=== PATIENT | female | born 1985 | race Caucasian/White ===

== ENCOUNTER → 2019-06-01 16:56 | Outpatient (CLI) | payer OTHER, SELFPAY | PROVIDERS: Family Provider Family Medicine; Visit Provider Nurse Practitioner | DX: J02.8 Acute pharyngitis due to other specified organisms (principal) | CPT/HCPCS: 87070; 87077; 87147; 87185 ==

== ENCOUNTER → 2020-08-15 13:39 | Outpatient (CLI) | payer OTHER, MEDICAID, SELFPAY ==
[2020-08-15 14:24] LABS: Add Manual Diff / Slide Review NO; Basophils Absolute Auto 0 /uL (0-100); Basophils Percent Auto 0.5 % (0-2); Eosinophils Absolute Auto 100 /uL (0-450); Eosinophils Percent Auto 1.6 % (2-4); Hemoglobin 12.9 g/dL (12.0-16.0); Lymphocytes Absolute Auto 3000 /uL (1100-4500); Lymphocytes Percent Auto 39.3 % (25-40); Mean Corpuscular Hemoglobin 32.3 PG (26-34); Monocytes Absolute Auto 600 /uL (0-900); Monocytes Percent Auto 8.3 % (3-14); Neutrophils Absolute Auto 3900 /uL (1500-7000); Neutrophils Percent Auto 50.3 % (50-75); Platelet Count 267 X10^3/uL (150-400); White Blood Cell Count 7.7 X10^3/uL (4.5-11.0)
[2020-08-15 14:40] LABS: Alanine Aminotransferase 28 IU/L (<35); Albumin 5.2 g/dL (3.5-5.0); Albumin Globulin Ratio 1.9 (1.0-2.8); Alkaline Phosphatase 37 U/L (38-126); Aspartate Aminotransferase 30 IU/L (14-36); Bilirubin Total 0.3 mg/dL (0.2-1.3); Blood Urea Nitrogen 12 mg/dL (7-17); Calcium 10.1 mg/dL (8.4-10.2); Carbon Dioxide 28 mmol/L (22-32); Chloride 100 mmol/L (98-107); Estimated Glomerular Filt Rate > 60.0 mL/min (>60); Globulin 2.8 g/dL (1.7-4.1); Glucose 81 mg/dL (70-100); HEMOLYSIS < 15 (0-50); Potassium 3.9 mmol/L (3.4-5.1); Sodium 137 mmol/L (137-145)
[2020-08-15 14:59] LABS: Free T4, Direct Thyroxine 1.03 ng/dL (0.78-2.19)
[2020-08-15 15:13] LABS: Thyroid Stimulating Hormone 0.873 uIU/mL (0.47-4.68)
== END ==
PROVIDERS: Family Provider Family Medicine; PCP Registered Nurse; Referring Provider Registered Nurse; Visit Provider Registered Nurse
DX: R53.83 Other fatigue (principal)
CPT/HCPCS: 36415; 80053; 84439; 84443; 85025

== ENCOUNTER → 2020-12-28 10:24 | Outpatient (CLI) | payer OTHER, MEDICAID, SELFPAY ==
--- NOTE | 2020-12-28 10:26 | DI.US.S_ITS ---
PROCEDURE: US PELVIC COMPLETE INDICATIONS: ABNORMAL VAGINAL BLEEDING TECHNIQUE: Real-time scanning was performed of the pelvic organs, with image documentation. Additional endovaginal scanning was necessary due to incomplete visualization of the adnexal and endometrial structures by transabdominal scanning. COMPARISON: None. FINDINGS: Uterus: Uterus is anteverted and anteflexed and normal in size at 7.3 x 3.4 x 5.4 cm. No myometrial masses. The endometrium measures three mm in combined thickness. The IUD is in satisfactory position at the fundal endometrium. There is no endometrial fluid collection. Ovaries: The right ovary measures 2.6 x 1.2 x 1.4 cm for a volume of 2.3 cc. The left ovary measures 3.4 x 3.0 x 2.6 for a volume of 13.8 cc. The left ovary contains a dominant follicle measuring 1.9 x 2.3 x 1.5 cm containing low level internal echoes and peripheral hypervascularity. The right ovary demonstrates a normal follicular echotexture. There is normal vascular flow in each ovary. Other: There is a small amount of diffuse mildly complex pelvic fluid. IMPRESSION: 1. IUD in satisfactory position in the uterus. 2. 2.3 cm hemorrhagic appearing left ovarian corpus luteum. 3. Mildly complex fluid in the pelvis suggests recent rupture of left ovarian corpus luteum. Dictated by: Mara Hidalgo M.D. on 12/28/2020 at 12:37 Approved by: Mara Hidalgo M.D. on 12/28/2020 at 12:42
== END ==
PROVIDERS: Family Provider Family Medicine; PCP Registered Nurse; Referring Provider Registered Nurse; Visit Provider Registered Nurse
DX: N93.9 Abnormal uterine and vaginal bleeding, unspecified (principal); N83.12 Corpus luteum cyst of left ovary; N64.4 Mastodynia; Z80.3 Family history of malignant neoplasm of breast; Z97.5 Presence of (intrauterine) contraceptive device
CPT/HCPCS: 76830; 76856

== ENCOUNTER → 2021-01-18 08:51 | Outpatient (CLI) | payer OTHER, MEDICAID, SELFPAY ==
--- NOTE | 2021-01-18 08:52 | DI.MG.S_ITS ---
BILATERAL DIGITAL DIAGNOSTIC MAMMOGRAM 3D/2D: 01/18/2021 CLINICAL: Baseline exam. Breast pain. No prior exams were available for comparison. The tissue of both breasts is extremely dense, which lowers the sensitivity of mammography. There is a 7 mm oval equal density lymph node in the left axillary tail. This correlates as palpated. No other significant masses, calcifications, or other findings are seen in either breast. IMPRESSION: INCOMPLETE: NEEDS ADDITIONAL IMAGING EVALUATION The 7 mm oval equal density lymph node corresponds to the palpable abnormality, but remains indeterminate. An ultrasound is recommended. This was performed immediately following this exam. This exam was interpreted at Station ID: [id number]. NOTE: For mammograms, a report in lay terms will be sent to the patient. Approximately 15% of breast malignancies will not be visualized mammographically. In the management of a palpable breast mass, a negative mammogram must not discourage biopsy of a clinically suspicious lesion. Electronically Signed By: Mara montano/:01/18/2021 09:50:22 ACR BI-RADS Category 0: Incomplete 3340F
--- NOTE | 2021-01-18 08:52 | DI.US.S_ITS ---
LIMITED ULTRASOUND OF LEFT BREAST: 01/18/2021 CLINICAL: Palpable left breast lump. Comparison is made to exam dated: 01/18/2021 [facility]. Color flow and real-time ultrasound of the left breast 1 o'clock region were performed. Delong scale images of the real-time examination were reviewed. No sonographic finding to correspond to the patient's palpable abnormality. Incidental finding of a 1.2 cm x 1.3 cm x 0.6 cm oval fibroadenoma with a circumscribed margin in the left breast at 1 o'clock middle depth 5 cm from the nipple. This fibroadenoma displays internal echoes and posterior acoustic enhancement. . Color flow imaging demonstrates that there is vascularity present and adjacent vascularity. IMPRESSION: PROBABLY BENIGN There is no abnormality seen in the left breast to correspond with the palpable abnormality and pain at 1 o'clock which is consistent with normal fibroglandular tissue. The 1.2 cm x 1.3 cm x 0.6 cm oval fibroadenoma in the left breast is probably benign. A follow-up left ultrasound in 6 months is recommended to demonstrate stability. Findings and recommendations were conveyed to the patient at time of exam. This exam was interpreted at Station ID: [id number]. Electronically Signed By: Mara montano/:01/18/2021 10:55:36 letter sent: Followup Recommended Ultrasound BI-RADS: 3 Probably benign
== END ==
PROVIDERS: Family Provider Family Medicine; PCP Registered Nurse; Referring Provider Registered Nurse; Visit Provider Registered Nurse
DX: N64.4 Mastodynia (principal); R92.8 Other abnormal and inconclusive findings on diagnostic imaging of breast; D24.2 Benign neoplasm of left breast
CPT/HCPCS: 76642; 77066; G0279

== ENCOUNTER → 2021-03-27 13:19 | Outpatient (CLI) | payer OTHER, MEDICAID, SELFPAY ==
[2021-03-29 09:42] LABS: Hepatitis Be Antibody Negative (Negative)
== END ==
PROVIDERS: Family Provider Family Medicine; PCP Registered Nurse; Referring Provider Registered Nurse; Visit Provider Registered Nurse
DX: R76.8 Other specified abnormal immunological findings in serum (principal)
CPT/HCPCS: 36415; 86707

== ENCOUNTER → 2021-05-15 13:21 | Outpatient (CLI) | payer OTHER, MEDICAID, SELFPAY ==
[2021-05-18 16:25] LABS: Hepatitis B Surface Antigen NEGATIVE s/c (NEGATIVE)
[2021-05-20 06:23] LABS: Hepatitis B Surf Ab Qualitativ Non Reactive (.)
== END ==
PROVIDERS: Student in an Organized Health Care Education/Training Program; Family Provider Family Medicine; PCP Registered Nurse; Referring Provider Registered Nurse; Visit Provider Registered Nurse
DX: R76.8 Other specified abnormal immunological findings in serum (principal)
CPT/HCPCS: 36415; 86706; 87340

== ENCOUNTER 2022-02-21 13:30 | Emergency (ER) | payer OTHER, SELFPAY ==
[2022-02-21 13:33] VITALS: BP 113/56; PULSE 74; RESP 14; TEMP 36; O2SAT 98; BMI 24.0
[2022-02-21] MEDS: TET,DIPH,PERTUSS(ACELL),VAC/PF 0.5 ML SYRINGE IM (14:30)
[2022-02-21] MEDS: HEPATITIS B VIRUS VACCINE 20 MCG/ML IM (14:31)
[2022-02-21 15:13] LABS: Alanine Aminotransferase 21 IU/L (<35)
[2022-02-21 15:38] VITALS: BP 109/59; PULSE 70; O2SAT 100
--- NOTE | 2022-02-21 20:07 | ED.GENADULT ---
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 She does not know about the source, she wishes to have a hepatitis-B vaccine. She denies history of hepatitis or other blood borne disease. Related Data Home Medications Medication Instructions Recorded Confirmed copper 380 square mm intrauterine intrauterine 10/22/18 03/06/21 device (ParaGard T 380A) Previous Rx's Medication Instructions Recorded clotrimazole 1 % topical cream 1 applic topical BID pityriasis 08/15/20 versicolor 2 weeks #30 grams escitalopram oxalate 10 mg tablet 10 mg PO DAILY anxiety with 02/20/21 (Lexapro) depression #30 tabs mupirocin 2 % topical ointment 1 applic topical DAILY #15 grams 02/21/22 Allergies Allergy/AdvReac Type Severity Reaction Status Date / Time No Known Drug Allergies Allergy Verified 02/21/22 13:32 Review of Systems Review of Systems Narrative: Review of systems is negative for acute abnormalities unless otherwise noted in HPI Patient History Medical History Abnormal vaginal bleeding Breast pain, left Cervical cancer screening Fatigue Surgical History Anesthesia History of tonsillectomy and adenoidectomy (~1992) Family History Grandfather Cancer Diabetes mellitus Hypertension Hyperlipidemia Stroke Social History Smoking Status: Former smoker Tobacco: How many years used: 10 alcohol intake: current (2 drinks per week ) substance use type: does not use Smoking Status: Former smoker alcohol intake frequency: a few times a week Substance Use Type: does not use Exam Narrative Exam Narrative: Independently reviewed vitals signs and nursing notes. General: Alert and oriented x3, no apparent distress. HEENT: EOMI. Oral mucosa is moist. Neck is supple, symmetrical face expressions Skin:, small puncture wound to left index finger, covered with Band-Aid Neurologic: Grossly intact, no new weakness or dizziness Initial Vital Signs Initial Vital Signs: Vital Signs Temperature 96.8 F L 02/21/22 13:33 Pulse Rate 74 02/21/22 13:33 Respiratory Rate 14 02/21/22 13:33 Blood Pressure 113/56 L 02/21/22 13:33 Pulse Oximetry 98 02/21/22 13:33 Oxygen Delivery Method 02/21/22 13:33 Course Orders Ordered: Discontinued Medications Diphtheria/Tetanus/Acell Pertussis (Tet,Diph,Pertuss(Acell),Vac/Pf 0.5 Ml Syringe) 0.5 ml IM .ONCE ONE Stop: 02/21/22 13:56 Last Admin: 02/21/22 14:30 Dose: 0.5 ml Documented By: ARTEMIO Hepatitis B Vaccine (Hepatitis B Virus Vaccine/Pf 20 Mcg/Ml Syringe (Adult)) 20 mcg IM NOW ONE Stop: 02/21/22 14:17 Last Admin: 02/21/22 14:31 Dose: 20 mcg Documented By: ARTEMIO Vital Signs Vital signs: Vital Signs - 8 hr 02/21/22 13:33 02/21/22 15:38 Temperature 96.8 F L Pulse Rate 74 70 Respiratory Rate 14 Blood Pressure 113/56 L 109/59 L Pulse Oximetry 98 100 Oxygen Delivery Method Room Air Room Air Medical Decision Making Lab Data Labs: Lab Results 02/21/22 02/21/22 Range/Units 14:37 14:37 ALT 21 (<35) IU/L Hepatitis C Antibody Negative (NEGATIVE) s/c HIV 1&2 Ab/P24 Ag 4thGn Negative (NEGATIVE) MDM Narrative Medical decision making narrative: This is a 36-year-old female who 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 Post exposure packet was completed, patient received tetanus vaccination, and a hepatitis vaccine. She declined wanting antivirals for prophylaxis. Patient is appropriate and amenable to discharge home. Vital signs are stable on repeat examination is unremarkable. Patient has been informed of results. Patient has been given strict return to ER precautions for any new or worsening symptoms. Patient understands to follow up closely with outpatient providers as instructed. Patient understands plan and agrees to discharge home. All questions and concerns answered at this time. Discharge Plan Departure Patient Disposition: Home Clinical Impression: Accidental needlestick injury with exposure to body fluid Instructions: DI for Accidental Exposure to Body Fluids Activity Restrictions/Additional Instructions: Juli, I am sorry for this injury that happened today, please use topical antibiotic ointment to help prevent any infection of this, this is a very low contamination area, chances of you can try acting a blood borne illness are very very low. We will call you if anything is positive on your lab work those obtained today thank you for your patients on the time to wait, I hope that you have a good rest of your week. I sent topical antibiotic ointment to [facility] which will cover you for MRSA and multiple oral pathogens. Prescriptions: New mupirocin 2 % ointment 1 applic topical DAILY Qty: 15 0RF No Action ParaGard T 380A 380 square mm intrauterine device Intrauterine clotrimazole 1 % cream 1 applic topical BID 14 Days Qty: 30 1RF escitalopram oxalate [Lexapro] 10 mg tablet 10 mg PO DAILY Qty: 30 3RF Referrals: Kimberley Rangel ARNP [Primary Care Provider] - Visit Report Forms: Patient Portal/API
[2022-02-22 16:44] LABS: HIV 1 & 2 Ab/Ag 4th Gen Combo NEGATIVE (NEGATIVE); Hep C Virus Ab w/Reflex Quant NEGATIVE s/c (NEGATIVE)
== END 2022-02-21 15:39 | disposition home or self-care (01) ==
PROVIDERS: Emergency Provider Nurse Practitioner Critical Care Medicine; Family Provider Family Medicine; PCP Registered Nurse
DX: Z20.9 Contact with and (suspected) exposure to unspecified communicable disease (principal); Z23 Encounter for immunization; W46.1XXA Contact with contaminated hypodermic needle, initial encounter; Y99.0 Civilian activity done for income or pay
CPT/HCPCS: 36415; 84460; 86803; 87389; 90471; 99282; 99283; 90715

== ENCOUNTER → 2023-03-08 10:13 | Outpatient (CLI) | payer OTHER, MEDICAID, SELFPAY ==
--- NOTE | 2023-03-08 10:14 | DI.MG.S_ITS ---
BILATERAL DIGITAL DIAGNOSTIC MAMMOGRAM 3D/2D: 03/08/2023 CLINICAL: Late Short term follow up of the left breast, due for bilateral imaging. Comparison is made to exams dated: 01/18/2021 mammogram and 01/18/2021 ultrasound - [facility]. Both breasts are extremely dense, which lowers the sensitivity of mammography (category d />75% glandular tissue). There is a mass in the left breast at 1 o'clock middle depth. Finding is seen only on tomography. This is more prominent and correlates with ultrasound findings. No other significant masses, calcifications, or other findings are seen in either breast. IMPRESSION: INCOMPLETE: NEEDS ADDITIONAL IMAGING EVALUATION The mass in the left breast is indeterminate. A targeted ultrasound is recommended and will immediately follow. Based on the Tyrer Cuzick model (a risk assessment model) the patient's lifetime risk is 10.5% and her 10 year risk is 0.9%. According to the ACR, ACS, and NCCN guidelines, an annual breast MRI exam along with mammogram is recommended if the patient's lifetime risk is 20% or greater. This exam was interpreted at Station ID: [id number]. NOTE: For mammograms, a report in lay terms will be sent to the patient. Approximately 15% of breast malignancies will not be visualized mammographically. In the management of a palpable breast mass, a negative mammogram must not discourage biopsy of a clinically suspicious lesion. Electronically Signed By: Clifford Peoples M.D. slc/:03/08/2023 11:40:38 ACR BI-RADS Category 0: Incomplete 3340F
--- NOTE | 2023-03-08 10:14 | DI.US.S_ITS ---
LIMITED ULTRASOUND OF LEFT BREAST AND AXILLA: 03/08/2023 CLINICAL: Late Short term follow up of the left breast. Comparison is made to exams dated: 03/08/2023 mammogram, 01/18/2021 ultrasound, and 01/18/2021 mammogram - [facility]. Color flow and real-time ultrasound of the left breast axilla were performed. Delong scale images of the real-time examination were reviewed. There is a 1.9 cm x 1.8 cm x 1 cm oval mass with a circumscribed margin in the left breast at 1 o'clock middle depth 5 cm from the nipple. This oval mass displays a well-defined boundary. This abnormality is increased in size and correlates as palpated. Color flow imaging demonstrates that there is no vascularity present. No significant abnormalities were seen sonographically in the left axilla. IMPRESSION: SUSPICIOUS OF MALIGNANCY The 1.9 cm x 1.8 cm x 1 cm oval mass in the left breast resembles a fibroadenoma and is at a low suspicion for malignancy. An ultrasound guided biopsy is recommended. No enlarged left axillary lymph nodes. Exam findings were discussed with the patient. This exam was interpreted at Station ID: [id number]. Electronically Signed By: Clifford Peoples M.D. slc/:03/08/2023 11:43:57 letter sent: Biopsy Required Ultrasound BI-RADS: 4a Low suspicion for malignancy
== END ==
PROVIDERS: Family Provider Family Medicine; PCP Family Medicine; Referring Provider Family Medicine; Visit Provider Family Medicine
DX: D24.2 Benign neoplasm of left breast (principal); N64.4 Mastodynia; N63.20 Unspecified lump in the left breast, unspecified quadrant
CPT/HCPCS: 76642; 77066; G0279

== ENCOUNTER → 2023-06-07 12:40 | Outpatient (CLI) | payer OTHER, MEDICAID, SELFPAY ==
--- NOTE | 2023-06-07 | PATH_ITS ---
[facility] Accession Number: [id number] No. of containers..01 Tissue . 01 Material submitted: . breast - LEFT BREAST MASS 1:00 5CMFN . 01 Clinical history: . LEFT BREAST MASS 1:00 5CMFN . 01 Diagnosis: A. Left Breast, Mass at 1 o'clock, 5 cm from Nipple, Biopsy: Fragments of fibroadenoma with usual ductal hyperplasia and columnar cell change/columnar cell hyperplasia. 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 Negative for atypia, carcinoma in situ, and malignancy. . COMMENT: Clinical and radiographic correlation is necessary. MRV 06/11/2023 1311 Local . 01 Electronically signed: . Reyna Rouse MD, Pathologist NPI- [id number] . 01 Gross description: . The specimen is received in formalin and labeled with the patient's name, , and US bx breast, and consists of multiple josé soft tissue fragments aggregating to 1.6 x 1.5 x 0.2 cm. Filtered, inked orange, and submitted entirely in cassette A1. . The specimen was removed on 06/07/2023 at 1342, time in formalin not provided, cold ischemic time cannot be calculated, total fixation time is approximately 49 hours. ([id number]) /FRR 06/08/2023 1613 Local . 01 Microscopic: . A panel of immunostains is performed on block A1 in order to evaluate the areas of intraductal hyperplasia for neoplasia, with appropriately staining external controls. The areas of interest demonstrate the following immunoprofile, in support of no evidence of neoplasia: . CK5/6: Not contributory due to technical artifacts. ER: Mosaic pattern. . Deeper H/E levels are also examined. . * This test was developed and its performance characteristics determined by [facility]. It has not been cleared or approved by the U.S. Food and Drug Administration. The FDA has determined that such clearance or approval is not necessary. This test is used for clinical purposes. It should not be regarded as investigational or for research. . 01 Pathologist provided ICD-10: D24.2 . 01 CPT . 189895, A73409, F44554 Performed at: 01 [facility] [address] [place] [address], [place], [place] [id number] MD Joseph Logan MD Phone: [phone]
--- NOTE | 2023-06-07 12:42 | DI.US.S_ITS ---
ULTRASOUND GUIDED BIOPSY LEFT BREAST WITH MARKING DEVICE INSERTED AND POST MAMMOGRAPHIC IMAGIN06/07/2023 CLINICAL: Left breast mass. PATIENT CONSENT: Risks (minor bleeding, infection, vasovagal reaction and repeat procedure), benefits and alternatives were explained to the patient and written informed consent was obtained. Correlation is made to exams dated: 03/08/2023 ultrasound, 03/08/2023 mammogram, 01/18/2021 ultrasound, and 01/18/2021 mammogram - . An ultrasound guided biopsy using real-time ultrasound was performed for the oval mass located in the left breast at 1 o'clock middle depth 5 cm from the nipple. This was described on the previous mammography and ultrasound reports. The skin was prepped in the usual manner. Local anesthetic was administered to the access site. A skin ros was made in the breast. The abnormality was approached from the lateral aspect. A 14 gauge biopsy needle was placed adjacent to the abnormality under ultrasound guidance. Once the needle was documented to be in the correct location, five specimens were obtained using BARD Elevation biopsy device. A Vision clip was inserted into the biopsy cavity. A sterile dressing was applied to the access site. Post procedure mammographic imaging demonstrates the location device at the targeted area. The specimens were sent to the laboratory for pathological analysis. IMPRESSION: ULTRASOUND GUIDED BIOPSY BENIGN Ultrasound guided biopsy of the mass in the left breast at 1 o'clock middle depth 5 cm from the nipple was successful. Pathology indicates benign usual ductal hyperplasia (DHU), fibroadenoma (FA), pseudoangiomatous stromal hyperplasia (PSH), and columnar cell change. Pathology results are concordant with imaging findings. Screening mammography beginning at age 40 is recommended. Results and recommendations will be communicated to the ordering provider's office. This exam was interpreted at Station ID: [id number]. Emmett pany,krg/:06/12/2023 14:15:32
--- NOTE | 2023-06-07 12:42 | DI.MG.S_ITS ---
UNILATERAL LEFT DIGITAL DIAGNOSTIC MAMMOGRAM 3D/2D - LEFT BREAST POST-NEEDLE BIOPSY: 06/07/2023 CLINICAL: Post left breast ultrasound biopsy, clip placment imaging. Comparison is made to exams dated: 03/08/2023 mammogram and 01/18/2021 mammogram - [facility]. The left breast is extremely dense, which lowers the sensitivity of mammography (category d />75% glandular tissue). There is a marker clip in the appropriate position in the left breast at 1 o'clock middle depth 5 cm from the nipple. This marker clip placement is at the biopsy site. This correlates with ultrasound findings and the biopsy. IMPRESSION: POST PROCEDURE MAMMOGRAM FOR MARKER PLACEMENT There was a successful marker clip placement in the left breast middle depth. Based on the Tyrer Cuzick model (a risk assessment model) the patient's lifetime risk is 10.5% and her 10 year risk is 0.9%. According to the ACR, ACS, and NCCN guidelines, an annual breast MRI exam along with mammogram is recommended if the patient's lifetime risk is 20% or greater. This exam was interpreted at Station ID: [id number]. NOTE: For mammograms, a report in lay terms will be sent to the patient. Approximately 15% of breast malignancies will not be visualized mammographically. In the management of a palpable breast mass, a negative mammogram must not discourage biopsy of a clinically suspicious lesion. Electronically Signed By: Emmett Jackson M.D. aty/:06/07/2023 16:52:51 ACR BI-RADS Category Post-procedure mammogram for marker placement
== END ==
LOC: US 12:40
PROVIDERS: Family Provider Family Medicine; PCP Family Medicine; Referring Provider Family Medicine; Visit Provider Family Medicine
DX: N64.4 Mastodynia (principal); N62 Hypertrophy of breast; D24.2 Benign neoplasm of left breast; R92.8 Other abnormal and inconclusive findings on diagnostic imaging of breast
CPT/HCPCS: 19083; 77065

== ENCOUNTER → 2023-07-03 12:45 | Outpatient (CLI) | payer OTHER, MEDICAID, SELFPAY ==
[2023-07-03 14:22] LABS: Add Manual Diff / Slide Review NO; Basophils Absolute Auto 0 /uL (0-100); Basophils Percent Auto 0.4 % (0-2); Eosinophils Absolute Auto 100 /uL (0-450); Eosinophils Percent Auto 1.5 % (2-4); Hematocrit 39.1 % (36-46); Hemoglobin 13.8 g/dL (12.0-16.0); Lymphocytes Absolute Auto 2500 /uL (1100-4500); Lymphocytes Percent Auto 36.9 % (25-40); Mean Corpuscular HGB Conc 35.2 % (30-36); Mean Corpuscular Hemoglobin 32.3 PG (26-34); Mean Corpuscular Volume 91.6 fL (80-100); Monocytes Absolute Auto 500 /uL (0-900); Monocytes Percent Auto 7.5 % (3-14); Neutrophils Absolute Auto 3700 /uL (1500-7000); Neutrophils Percent Auto 53.7 % (50-75); Platelet Count 281 X10^3/uL (150-400); Red Blood Cell Count 4.27 X10^6/uL (4.0-5.2); White Blood Cell Count 6.8 X10^3/uL (4.5-11.0)
[2023-07-03 14:34] LABS: Alanine Aminotransferase 45 IU/L (<35); Albumin 4.9 g/dL (3.5-5.0); Albumin Globulin Ratio 1.4 (1.0-2.8); Alkaline Phosphatase 38 U/L (38-126); Aspartate Aminotransferase 31 IU/L (14-36); BUN Creatinine Ratio 20.3 (6-22); Bilirubin Total 0.6 mg/dL (0.2-1.3); Blood Urea Nitrogen 13 mg/dL (7-17); Calcium 9.7 mg/dL (8.4-10.2); Carbon Dioxide 26 mmol/L (22-32); Chloride 103 mmol/L (98-107); Estimated Glomerular Filt Rate > 60 mL/min (>60); Globulin 3.5 g/dL (1.7-4.1); Glucose 96 mg/dL (70-100); HEMOLYSIS 15 (0-50); Potassium 3.8 mmol/L (3.4-5.1); Sodium 138 mmol/L (137-145); Total Protein 8.4 g/dL (6.3-8.2)
[2023-07-03 15:21] LABS: Vitamin B12 676 pg/mL (239-931)
[2023-07-03 16:52] LABS: Vitamin D 25 Hydroxy (D3) 41.3 ng/mL (30.0-100.0)
== END ==
PROVIDERS: Family Provider Family Medicine; PCP Family Medicine; Referring Provider Family Medicine; Visit Provider Family Medicine
DX: F41.8 Other specified anxiety disorders (principal); R41.840 Attention and concentration deficit; R53.82 Chronic fatigue, unspecified
CPT/HCPCS: 36415; 80053; 82306; 82607; 84443; 85025

== ENCOUNTER → 2024-06-02 08:09 | Outpatient (CLI) | payer OTHER, SELFPAY | PROVIDERS: Family Provider Family Medicine; PCP Family Medicine; Visit Provider Nurse Practitioner Family | DX: J02.9 Acute pharyngitis, unspecified (principal) | CPT/HCPCS: 87070 ==

== ENCOUNTER → 2024-10-26 11:01 | Outpatient (CLI) | payer OTHER, SELFPAY ==
[2024-10-26 11:50] LABS: Influenza A - CEPHEID Flu A NEGATIVE (NEGATIVE); Influenza B - CEPHEID Flu B NEGATIVE (NEGATIVE); Respiratory Syncytial Virus Negative (Negative)
[2024-10-26 11:56] LABS: COVID-19 CEPHEID 4-PLEX PCR Negative (Negative)
== END ==
PROVIDERS: Family Provider Family Medicine; PCP Family Medicine; Visit Provider Nurse Practitioner Family
DX: J02.8 Acute pharyngitis due to other specified organisms (principal); B97.89 Other viral agents as the cause of diseases classified elsewhere; J02.9 Acute pharyngitis, unspecified
CPT/HCPCS: 0241U; 87070

== ENCOUNTER → 2024-11-19 11:32 | Outpatient (CLI) | payer OTHER, SELFPAY ==
[2024-11-19 12:31] LABS: Hematocrit 40.5 % (36-46); Hemoglobin 13.9 g/dL (12.0-16.0); Mean Corpuscular HGB Conc 34.4 % (30-36); Mean Corpuscular Hemoglobin 32.3 PG (26-34); Mean Corpuscular Volume 94.0 fL (80-100); Platelet Count 336 X10^3/uL (150-400)
[2024-11-19 13:06] LABS: HEMOLYSIS < 15 (0-50); Iron 161 ug/dL (37-170)
[2024-11-19 13:14] LABS: Alanine Aminotransferase 30 IU/L (<35); Albumin 5.1 g/dL (3.5-5.0); Albumin Globulin Ratio 1.6 (1.0-2.8); Alkaline Phosphatase 47 U/L (38-126); Blood Urea Nitrogen 14 mg/dL (7-17); Calcium 10.2 mg/dL (8.4-10.2); Carbon Dioxide 26 mmol/L (22-32); Chloride 101 mmol/L (98-107); Cholesterol 259 mg/dL (140-199); Estimated Glomerular Filt Rate > 60 mL/min (>60); Globulin 3.2 g/dL (1.7-4.1); Glucose 90 mg/dL (70-99); HDL Cholesterol 71 mg/dL (40-60); HEMOLYSIS < 15 (0-50); Potassium 4.4 mmol/L (3.4-5.1); Sodium 138 mmol/L (137-145); Total Protein 8.3 g/dL (6.3-8.2); Triglycerides 97 mg/dL (35-150)
[2024-11-19 13:17] LABS: Percent Iron Saturation 54 % (15-50); Total Iron Binding Capacity 300 ug/dL (265-497); Transferrin 254 mg/dL (206-381)
[2024-11-19 13:28] LABS: HCG Quantitative /Beta subunit < 2.39 mIU/mL
[2024-11-19 13:46] LABS: Ferritin 118 ng/mL (6-137)
[2024-11-19 13:59] LABS: Vitamin B12 Reflex MMA if <400 508 pg/mL (239-931)
[2024-11-19 15:41] LABS: Vitamin D 25 Hydroxy (D3) 41.2 ng/mL (30.0-100.0)
[2024-11-19 15:43] LABS: Follicle Stimulating Hormone 7.80 mIU/mL
== END ==
PROVIDERS: Family Provider Family Medicine; PCP Family Medicine; Referring Provider Family Medicine; Visit Provider Family Medicine
DX: N92.6 Irregular menstruation, unspecified (principal); R53.82 Chronic fatigue, unspecified
CPT/HCPCS: 36415; 80053; 80061; 82306; 82607; 82728; 83001; 83002; 83540; 83550; 84702; 85027

== ENCOUNTER → 2024-12-25 13:11 | Outpatient (CLI) | payer OTHER, SELFPAY ==
--- NOTE | 2024-12-25 13:12 | DI.US.S_ITS ---
PROCEDURE: US PELVIC COMPLETE INDICATIONS: Irregular, heavy menstrual bleeding after IUD removal TECHNIQUE: Real-time scanning was performed of the pelvic organs, with image documentation. Additional endovaginal scanning was necessary due to incomplete visualization of the adnexal and endometrial structures by transabdominal scanning. COMPARISON: [facility], US, US PELVIC COMPLETE, 12/28/2020, 9:38. FINDINGS: Uterus: Uterus is anteverted and normal in size at 7.7 x 3.3 x 4.2 cm. The myometrium is homogeneous. The endometrium measures 3.6 mm combined thickness. There is a 1.1 x 1 cm fibroid in the left anterior region, intramural. Ovaries: The right ovary measures 2.3 x 3.6 x 3 cm, with a calculated ovarian volume of 12.8 cc. The left ovary measures 2.1 x 2.5 x 1.8 cm, with a calculated ovarian volume of 4.9. The ovaries have a normal sonographic appearance. Less than 12 follicles can be seen in each ovary. No adnexal masses are seen. Other: No pathologic free abdominal or pelvic fluid. IMPRESSION: 1. Endometrial stripe measuring 3.6 mm, no focal lesion. 2. Small fibroid measuring 1.1 cm. 3. No adnexal mass. We strive to produce accurate, complete, and clear reports of imaging services. To assist us in improving patient care, this report was composed using standard report templates and voice recognition software. Therefore, it may contain abnormal punctuation, insertions and/or omissions. Occasional wrong-word or sound-alike substitutions may occur. Though we review the report and make efforts to correct it, we do recommend that the report be read carefully in proper context to recognize any text inaccuracies. Dictated by: Srinivas Matamoros M.D. on 12/26/2024 at 17:19 Approved by: Srinivas Matamoros M.D. on 12/26/2024 at 17:21
== END ==
PROVIDERS: Family Provider Family Medicine; PCP Family Medicine; Referring Provider Family Medicine; Visit Provider Family Medicine
DX: N92.6 Irregular menstruation, unspecified (principal); D25.1 Intramural leiomyoma of uterus
CPT/HCPCS: 76830; 76856

== ENCOUNTER → 2025-02-02 12:49 | Outpatient (CLI) | payer OTHER, SELFPAY | PROVIDERS: Family Provider Family Medicine; PCP Family Medicine; Referring Provider Family Medicine; Visit Provider Family Medicine | DX: Z02.1 Encounter for pre-employment examination (principal) | CPT/HCPCS: 36415; 86787 ==

== ENCOUNTER → 2025-04-23 15:57 | Outpatient (CLI) | payer OTHER, SELFPAY ==
[2025-04-23 17:58] LABS: Urine N gonorrhoeae NOT DETECTED
[2025-04-23 18:14] LABS: Urine Chlamydia NOT DETECTED
== END ==
PROVIDERS: PCP Family Medicine; Visit Provider Family Medicine
DX: Z30.430 Encounter for insertion of intrauterine contraceptive device (principal)
CPT/HCPCS: 87491; 87591